=== PATIENT | female | born 1995 | race Caucasian/White ===

== ENCOUNTER 2017-06-10 01:19 | Emergency (ER) | END 2017-06-10 02:32 | disposition left against medical advice (07) ==

== ENCOUNTER 2018-09-19 23:57 | Emergency (ER) | payer MEDICAID, OTHER ==
[~2018-09-19] VITALS: Wt 80.6 kg
[~2018-09-19 23:57] MED LIST: NITR-58 PO
[2018-09-20] VITALS: BP 141/77; PULSE 93; RESP 20
--- NOTE | 2018-09-20 00:33 | ERD ---
ER Documentation Chief Complaint Chief Complaint vag bleed started today; 8 weeks HPI 23-year-old female presents for vaginal bleeding x1 hour. She is currently 8 weeks . States that she was having intercourse and developed to the bleeding. She had one episode of bleeding. No current bleeding noted. She admits to 5 out of 10 pelvic pain bilaterally. Denies fevers or chills. She did have an ultrasound done previously by her [employer]ONNAGE COMPILATION CLERK and states that the was going well. No other modifying factors noted, no other treatments tried at home. ROS All systems reviewed and are negative except as per history of present illness. Medications Home Meds Active Scripts Nitrofurantoin Monohyd Macrocr* (Macrobid*) 100 Mg Capsr, 100 MG PO BID for 7 D ays, CAP Prov:SORAYA DONALD PA-C 08/18/15 Reported Medications [None] No Conflict Check 10/31/10 Allergies Allergies: Coded Allergies: No Known Allergies (Verified Allergy, Unknown, 02/24/14) Uncoded Allergies: BANANAS (Allergy, Severe, PAIN IN THROAT, SHORTNESS OF BREATH, 05/29/11) PMhx/Soc Medical and Surgical Hx: pt denies Medical Hx, pt denies Surgical Hx History of Surgery: No Anesthesia Reaction: No Hx Neurological Disorder: No Hx Respiratory Disorders: Yes (BRONCHITIS ) Hx Cardiac Disorders: No Hx Psychiatric Problems: No Hx Miscellaneous Medical Probl: No Hx Alcohol Use: No Hx Substance Use: No Hx Tobacco Use: No Smoking Status: Never smoker FmHx Family History: No coronary disease Physical Exam Vitals Vital Signs Date Temp Pulse Resp B/P (MAP) Pulse Ox O2 O2 Flow FiO2 Time Delivery Rate 09/20/18 97.0 93 20 141/77 99 00:00 (98) Physical Exam Const: No acute distress Resp: Clear to auscultation bilaterally Cardio: Regular rate and rhythm, no murmurs Abd: Soft, non tender, non distended. Normal bowel sounds Skin: No petechiae or rashes Back: No midline or flank tenderness Ext: No cyanosis, or edema Neur: Awake and alert Psych: Normal Mood and Affect Procedures/MDM Medical Decision Making: Differential diagnosis includes but not limited to spontaneous , ovarian cyst, uterine fibroid, ectopic . Patient appeared well on physical examination. Orders were placed for CBC, beta hCG level, UA, OB ultrasound. Patient initially agreed however she states that she felt better, she states that her vaginal bleeding has resolved and she would rather follow-up with TONNAGE COMPILATION CLERK. Patient advised to return to ER if vaginal bleeding returns. Patient advised to follow up with PCP in 1-2 days. Patient advised to return to ED for new or worsening symptoms. Patient stable on discharge from the ED. Disclaimer: Inadvertent spelling and grammatical errors are likely due to EHR/dictation software use and do not reflect on the overall quality of patient care. Also, please note that the electronic time recorded on this note does not necessarily reflect the actual time of the patient encounter. Departure Diagnosis: Primary Impression: Vaginal bleeding in patient at less than 20 weeks ges... Condition: Fair Patient Instructions: Bleeding During Early Referrals: [facility] YOU HAVE RECEIVED A MEDICAL SCREENING EXAM AND THE RESULTS INDICATE THAT YOU DO NOT HAVE A CONDITION THAT REQUIRES URGENT TREATMENT IN THE EMERGENCY DEPARTMENT. FURTHER EVALUATION AND TREATMENT OF YOUR CONDITION CAN WAIT UNTIL YOU ARE SEEN IN YOUR DOCTORS OFFICE WITHIN THE NEXT 1-2 DAYS. IT IS YOUR RESPONSIBILITY TO MAKE AN APPOINTMENT FOR FOLOW-UP CARE. IF YOU HAVE A PRIMARY DOCTOR --you should call your primary doctor and schedule an appointment IF YOU DO NOT HAVE A PRIMARY DOCTOR YOU CAN CALL OUR PHYSICIAN REFERRAL HOTLINE AT IF YOU CAN NOT AFFORD TO SEE A PHYSICIAN YOU CAN CHOSE FROM THE FOLLOWING [facility] [address] [facility] [address] [address] [facility] [address] [facility] [facility] [address] [facility] [address] [facility] [address] [facility]. [facility]. [address] Additional Instructions: Call your primary care doctor TOMORROW for an appointment during the next 1-2 days.See the doctor sooner or return here if your condition worsens before your appointment time. Follow up with road inspector JIMENEZ FLORES DO September 20, 2018 00:33
== END 2018-09-20 00:51 | disposition home or self-care (01) ==
LOC: FTE 23:57
DX: O20.9 Hemorrhage in early pregnancy, unspecified (principal); Z3A.08 8 weeks gestation of pregnancy
CPT/HCPCS: 99282